=== PATIENT | female | born 1950 | race Caucasian/White ===

== ENCOUNTER → 2016-09-05 | Outpatient (CLI) | payer OTHER | LOC: BRMIMAGING 11:14 | PROVIDERS: ATTEND Family Medicine | DX: D25.9 Leiomyoma of uterus, unspecified (principal); N83.202 Unspecified ovarian cyst, left side; Z80.41 Family history of malignant neoplasm of ovary | CPT/HCPCS: 76856-PO ==

== ENCOUNTER → 2016-11-10 | Outpatient (CLI) | payer OTHER | LOC: FIMAGING 10:58 | PROVIDERS: ATTEND Family Medicine | DX: Z12.31 Encounter for screening mammogram for malignant neoplasm of breast (principal) | CPT/HCPCS: G0202 ==

== ENCOUNTER → 2017-02-09 | Outpatient (CLI) | payer OTHER | LOC: BRMIMAGING 11:02 | PROVIDERS: ATTEND Family Medicine | DX: R10.32 Left lower quadrant pain (principal); Z87.19 Personal history of other diseases of the digestive system | CPT/HCPCS: 76705-PO ==

== ENCOUNTER 2017-11-10 08:16 | Emergency (ER) | payer OTHER ==
[2017-11-10] MEDS ORDERED: IBUPROFEN 600 MG TAB PO ONE (08:46)
--- NOTE | 2017-11-10 08:47 | EDPHY ---
H & P Time Seen by Provider: 11/10/17 08:34 HPI/ROS: CHIEF COMPLAINT: Left chest pain HISTORY OF PRESENT ILLNESS: 67-year-old woman with a history of hypertension and hypercholesterolemia presents with 2-3 days of nonproductive cough and intermittent left-sided chest pain and chest tightness. 1st episode of sharp left-sided chest pain was 2 nights ago when she was watching a movie at home, lasted a few seconds and resolved. Last night she woke up from sleep when her symptoms occurred, was on and off over the next couple of hours and was better with Aleve. Sharp, left-sided, nonradiating. Not better or worse with deep breathing or exertion. Not associated with fever or leg swelling. Notably the patient has a family history of venous thromboembolism with father and brother having blood clots and her director corporate having told her she was "at risk" for blood clots given a blood test that she had for screening for risk factors for DVT or PE. She has asthma but no current wheezing. No palpitations or dizziness. REVIEW OF SYSTEMS: Eye: no change in vision ENT: no sore throat Cardiac: HPI Pulmonary: HPI no hemoptysis, a little bit with chest tightness Abdomen: no vomiting, diarrhea, abdominal pain Musculoskeletal: no back pain or leg swelling Skin: no rash Neuro: no headache. She has some pain and numbness in her arms for which she is scheduled for cervical spine surgery next month, the symptoms are stable Constitutional: no fever : no urinary symptoms A comprehensive 10 point review of systems is otherwise negative aside from elements mentioned in the history of present illness. PAST MEDICAL HISTORY: Cervical spine disease as above, hypertension, asthma, seizure disorder on Tegretol. Family history: Positive for venous thromboembolism in father and brother Social history: Nonsmoker General Appearance: Alert and conversant, cooperative. Eyes: No scleral icterus. ENT, Mouth: Normal mucous membranes. Respiratory: Normal respiratory effort, breath sounds equal, lungs are clear to auscultation. Not splinting. Breath sounds equal. No wheezing. Cardiovascular: Regular rate and rhythm. No murmur. Gastrointestinal: Abdomen is soft and non tender. Neurological: Alert, face symmetric, ambulatory. Skin: No zoster over the area of symptoms. Musculoskeletal: No peripheral edema. No calf tenderness. Psychiatric: Not agitated. Emergency Department course/MDM: Oral ibuprofen 600. EKG, but low suspicion for ACS or VT. Chest x-ray ordered , D-dimer for venous thromboembolism screening given her family history. More likely to be pleurisy or inflammatory or muscular than pulmonary embolism. 913: Chest x-ray and EKG results discussed with the patient, discharge if D- dimer is negative; CT angiography of the chest if positive. 958: d-dimer 0.5, less than .1 x age, pulmonary embolism unlikely. Results and outpatient symptomatic treatment discussed with the patient, she states understanding and agreement with the plan. Smoking Status: Never smoked Constitutional: Initial Vital Signs Temperature (C) 37.2 C 11/10/17 08:23 Heart Rate 78 11/10/17 08:23 Respiratory Rate 18 11/10/17 08:23 Blood Pressure 165/106 H 11/10/17 08:23 O2 Sat (%) 95 11/10/17 08:23 O2 Delivery Mode Room Air Allergies/Adverse Reactions: Sulfa (Sulfonamide Antibiotics) Allergy (Verified 11/10/17 08:28) Home Medications: Medication Instructions Recorded Aspirin [Aspir 81] 81 mg PO 01/26/13 Budesonide/Formoterol 160/4.5 01/26/13 [Symbicort 160-4.5 Mcg Inh (RX)] CALCIUM CITRATE 200 mg PO BID 01/26/13 FLUoxetine [Prozac 10 MG (RX)] 10 mg 01/26/13 Montelukast Sodium [Singulair 10 01/26/13 mg (*)] Simvastatin [Zocor 10 mg] 01/26/13 busPIRone HCL [Buspirone HCl] 10 mg PO 01/26/13 Albuterol [Proventil Inhaler HFA 1 - 2 puffs IH Q4 #1 mdi 10/11/14 (*)] Herbals/Supplements -Info Only 04/12/16 Aleve 11/10/17 Miralax 17 gm (*) 11/10/17 Tegretol 11/10/17 Medical Decision Making - Diagnostics EKG Interpretation: 12-lead EKG interpreted by me; official reading is in trace master. My interpretation is sinus rhythm rate 76 no ischemic changes. Normal intervals. Imaging Results: Imaging Impressions Chest X-Ray 11/10/17 08:46 Impression: 1. Chronic scarring or atelectasis in the lingula and right middle lobe. 2. No active cardiopulmonary disease seen. Chest x-ray negative, specifically no infiltrate or cardiomegaly or pneumothorax. Normal mediastinum. Imaging: I viewed and interpreted images myself Differential Diagnosis: Differential diagnosis considered for chest pain including but not limited to myocardial ischemia, aortic dissection, pericarditis, pulmonary embolus, chest wall pain, pleural inflammation and pulmonary infectious causes. - Data Points Laboratory Results: 11/10/17 11/10/17 09:20 08:45 D-Dimer 0.50 ug/mLFEU ug/mLFEU (0.00-0.50) POC Sodium 141 mEq/L mEq/L (135-145) POC Potassium 4.0 mEq/L mEq/L (3.3-5.0) POC Chloride 108.0 mEq/L mEq/L (97-110) POC Total CO2 26 mEq/L mEq/L (22-31) POC BUN 18 mg/dL mg/dL (7-23) POC Creatinine 0.8 mg/dL mg/dL (0.6-1.0) POC Glucose 94 mg/dL mg/dL (70-100) POC Calcium 9.1 mg/dL mg/dL (8.5-10.4) Medications Given: Discontinued Medications Ibuprofen (Motrin) 600 mg PO EDNOW ONE Stop: 11/10/17 08:47 Last Admin: 11/10/17 09:22 Dose: 600 mg Point of Care Test Results: Chemistry 11/10/17 09:20 POC Sodium 141 mEq/L mEq/L (135-145) POC Potassium 4.0 mEq/L mEq/L (3.3-5.0) POC Chloride 108.0 mEq/L mEq/L (97-110) POC Total CO2 26 mEq/L mEq/L (22-31) POC BUN 18 mg/dL mg/dL (7-23) POC Creatinine 0.8 mg/dL mg/dL (0.6-1.0) POC Glucose 94 mg/dL mg/dL (70-100) POC Calcium 9.1 mg/dL mg/dL (8.5-10.4) Departure - Departure Disposition: Home, Routine, Self-Care Clinical Impression: Chest pain Qualifiers: Chest pain type: unspecified Qualified Code(s): R07.9 - Chest pain, unspecified Condition: Good Instructions: Chest Pain (ED), Pleurisy (ED) Additional Instructions: Oral ibuprofen 600 mg every 8 hr for the next 2-3 days, follow-up with your primary care doctor on Sunday as scheduled. Referrals: Donna Glover, [Primary Care Provider] - As per Instructions ()
--- NOTE | 2017-11-10 08:54 | CPEKG ---
Heart Rate: 76 RR Interval: 789 P-R Interval: 176 QRSD Interval: 88 QT Interval: 388 QTC Interval: 437 P [place]: 72 QRS [place]: 23 T Wave [place]: 42 EKG Severity - NORMAL ECG - EKG Impression: SINUS RHYTHM Electronically Signed By: Jame Hyatt 10-Nov-2017 08:54:43
[2017-11-10 10:05] VITALS: BP 150/90
== END 2017-11-10 10:10 | disposition home or self-care (01) ==
LOC: CED 08:16
DX: R07.9 Chest pain, unspecified (principal); I10 Essential (primary) hypertension; J45.909 Unspecified asthma, uncomplicated; Z79.82 Long term (current) use of aspirin
CPT/HCPCS: 71046-PO; 80048-PO

== ENCOUNTER → 2018-01-23 | Outpatient (CLI) | payer OTHER | LOC: BRMIMAGING 13:12 | PROVIDERS: ATTEND Family Medicine | DX: Z12.31 Encounter for screening mammogram for malignant neoplasm of breast (principal); Z80.3 Family history of malignant neoplasm of breast ==

== ENCOUNTER 2018-02-14 07:14 | Day surgery (SDC) | payer OTHER ==
[2018-02-14] MEDS ORDERED: LR 1,000 ML IV ONE (07:34)
[2018-02-14] MEDS ORDERED: BUPIVACAINE 0.5% 30 ML SDV ONE (08:01)
--- NOTE | 2018-02-14 09:04 | PDHPUP ---
History & Physical Update H&P update statement: This history and physical update is based on an assessment of the patient which was completed after admission or registration (within 24 hours), but prior to the surgery/procedure. H&P update: H&P reviewed & patient examined, no change in patient's condition since H&P completed (no changes)
--- NOTE | 2018-02-14 10:06 | POSTOPPROG ---
Post Op Note Date of Operation: 02/14/18 Surgeon: Tunde Preciado Cancer [facility] Director: emilee Anesthesiologist: none Anesthesia: Local (Specify) (local infiltration with Marcaine 5cc) Pre-op Diagnosis: Left long trigger finger Post-op Diagnosis: same Indication: triggering and pain Procedure: left long trigger finger release Findings: tight A1 seema Inf/Abcess present in the surg proc area at time of surgery?: No Depth: Deep Incisional (Fascial) EBL: Minimal Total fluids administered: none Complications: none Drains: Constavac Specimen(s): no
--- NOTE | 2018-02-14 10:32 | GOP ---
DATE OF ADMISSION: 02/14/2018 PREOPERATIVE DIAGNOSIS: Left long trigger finger. POSTOPERATIVE DIAGNOSIS: Left long trigger finger. PROPOSED OPERATION: Left long trigger finger release. INDICATION: Persistent limitation of motion, tenderness, and catching and popping of the left long f soco with extension and flexion. It was felt that trigger finger release at this point was a good o ption for her. DESCRIPTION: Under local infiltration of the operative area using 5 cc of 0.5% plain Marcaine, the sebastian lynne's left arm was prepped and draped in the usual fashion and arm tourniquet was applied at 250 m mHg. An oblique incision was made over the palmar aspect of the left long finger at the A1 seema ar ea. Skin and subcutaneous tissue was reflected, and the A1 seema was exposed. The A1 seema was re leased longitudinally. A2 seema was left intact. Proximal extension of the A1 seema was also rele ased. A portion of the A1 semea was excised; so, the primary reapproximation with minimal interpose d tissue would not be possible and range of motion of the finger was tested. The finger had full ran ge of motion. Tendons glided smoothly. There was no other pathology recognized. The wound was irri gated with body temperature saline and then horizontal mattress sutures of 5-0 Prolene were placed fo r skin reapproximation. A bulky soft pressure dressing was applied and held in place with Coban tape . Tourniquet deflation resulted in immediate pinking of the digits, and the patient was brought to located within [facility] recovery area where detailed instructions were given prior to discharge. A prescription for trama dol and Keflex was provided. Followup arrangements in the office for 1 week postop for dressing and suture removal and remobilization exercises. She was allowed to use her left hand for gentle activit y, 2-pound limit. /[id number]/MODL
[2018-02-14 11:04] VITALS: BP 137/98
== END 2018-02-14 10:55 | disposition home or self-care (01) ==
LOC: FSGY 07:14
PROVIDERS: ATTEND Specialist
PROC: 0LN80ZZ Release Left Hand Tendon, Open Approach (ICD-10-PCS; principal; 2018-02-14 08:45)
DX: M65.332 Trigger finger, left middle finger (principal); M72.0 Palmar fascial fibromatosis [Dupuytren]; F41.8 Other specified anxiety disorders; J45.909 Unspecified asthma, uncomplicated; K21.9 Gastro-esophageal reflux disease without esophagitis; M81.0 Age-related osteoporosis without current pathological fracture

== ENCOUNTER 2018-04-22 10:40 | Emergency (ER) | payer OTHER ==
--- NOTE | 2018-04-22 11:04 | EDPHY ---
H & P Stated Complaint: cough x 3days . ? fever Time Seen by Provider: 04/22/18 10:43 HPI/ROS: Chief Complaint: Sore throat, cough, congestion HPI: 67-year-old woman presenting with 3 days of worsening sore throat, sinus drainage, congestion and cough. Patient felt very warm last night thought she may have had a fever. Cough is nonproductive. No chest pain or shortness of breath. She has been taking Mucinex without relief. She was exposed to strep throat in her granddaughter 3-4 days ago. No nausea or vomiting. Is complaining of pain in the throat with some pain with swallowing. Is able to swallow solids and liquids. No difficulty breathing. ROS: 10 systems were reviewed and were negative except those elements noted in the HPI. PMH: Anxiety and depression Social History: No smoking, no alcohol, no recreational drug use Family History: non-contributory Physical Exam: Gen: Awake, Alert, No Distress HEENT: Nose: no rhinorrhea Eyes: PERRLA, EOMI Mouth: Moist mucosa mild generalized erythema without edema or exudate Neck: Supple, no JVD Chest: nontender, lungs clear to auscultation Heart: S1, S2 normal, no murmur Abd: Soft, non-tender, no guarding Back: no CVA tenderness, no midline tenderness Ext: no edema, non-tender Skin: no rash Neuro: CN II-XII intact, Sensation grossly intact, Strength 5/5 in bilateral upper and lower extremities - Personal History Current Tetanus Diphtheria and Acellular Pertussis (TDAP): Yes - Medical/Surgical History Hx Asthma: Yes Hx Chronic Respiratory Disease: No Hx Diabetes: No Hx Cardiac Disease: No Hx Renal Disease: No Hx Cirrhosis: No Hx Alcoholism: No Hx HIV/AIDS: No Hx Splenectomy or Spleen Trauma: No Other PMH: UTCD, chronic low back pain, epilepsy, cecal vulvulous, pleurisy, bronchitis. cervical discectomy/fusion - Social History Smoking Status: Never smoked Constitutional: Initial Vital Signs Temperature (C) 37.1 C 04/22/18 10:44 Heart Rate 90 04/22/18 10:44 Respiratory Rate 16 04/22/18 10:44 Blood Pressure 119/87 H 04/22/18 10:44 O2 Sat (%) 97 04/22/18 10:44 O2 Delivery Mode Room Air Allergies/Adverse Reactions: erythromycin base Allergy (Verified 04/22/18 10:50) Itching Sulfa (Sulfonamide Antibiotics) Allergy (Verified 04/22/18 10:50) Hives Home Medications: Medication Instructions Recorded Budesonide/Formoterol 160/4.5 2 puffs IH BID 01/26/13 [Symbicort 160-4.5 Mcg Inh (*)] Montelukast Sodium [Singulair 10 10 mg PO HS 01/26/13 mg (*)] Dicyclomine [Bentyl 10 MG (*)] 10 mg PO TID 11/15/17 Simvastatin [Zocor] 20 mg PO HS 11/15/17 busPIRone [Buspar (*)] 10 mg PO TID 11/15/17 FLUoxetine HCL [Sarafem] 30 mg PO HS 12/07/17 ALBUTEROL SULFATE PRN 02/12/18 Aspirin 81mg (*) DAILY 02/12/18 Iron DAILY 02/12/18 Lyrica 50mg (*) HS 02/12/18 Miralax 17 gm (*) DAILY 02/12/18 Doxycycline Hyclate 100 mg PO BID #14 tablet 04/22/18 Medical Decision Making - Diagnostics Imaging Results: Imaging Impressions Chest X-Ray 04/22/18 11:00 Impression: Lingular atelectasis/infiltrate, suspicious for pneumonia. Recommend radiographic follow-up in 4-6 weeks after treatment to document resolution.. ED Course/Re-evaluation: Chest x-ray consistent with lingular pneumonia. Will start her on doxycycline as she is allergic to azithromycin and does not have any risk factors for drug- resistant pneumonia. Will have her follow up with primary care physician in 2- 3 days for recheck, return for worsening. Departure - Departure Disposition: Home, Routine, Self-Care Clinical Impression: Pneumonia Condition: Good Instructions: Pneumonia (ED) Additional Instructions: Please take your full course of antibiotics. Alternate acetaminophen (1000 mg) with ibuprofen (400 mg) every 4 hours as needed for fevers, chills, aches or pain. Follow up with primary care physician in 2-3 days for recheck. Return to the emergency department for worsening cough, uncontrolled fevers, worsening chest pain, shortness of breath, or any other concerns. Referrals: Donna Glover DO [Primary Care Provider] - As per Instructions Prescriptions: Doxycycline Hyclate 100 mg PO BID #14 tablet
[2018-04-22 12:07] VITALS: BP 121/81
== END 2018-04-22 12:05 | disposition home or self-care (01) ==
LOC: CED 10:40
DX: J18.9 Pneumonia, unspecified organism (principal); Z88.0 Allergy status to penicillin; Z98.1 Arthrodesis status
CPT/HCPCS: 71046-PO

== ENCOUNTER → 2018-10-22 | Outpatient (CLI) | payer OTHER | LOC: CIMAGING 13:29 ==